=== PATIENT | female | born 1980 | race Caucasian/White ===

== ENCOUNTER 2016-10-28 19:45 | Emergency (ER) | payer MEDICAID ==
[2016-10-28 19:59] VITALS: TEMP 97.7
[2016-10-28 20:26] LABS: % IMMATURE GRANULYOCYTES 0.1 % (0.0-1.1); ABSOLUTE IMMATURE GRANULOCYTES 0.01 10^3/uL (0.00-0.10); ADD DIFF? NO; ADD MORPH? NO; ADD SCAN? NO; ATYPICAL LYMPHOCYTE FLAG 30 (0-99); FRAGMENT RBC FLAG 0 (0-99); HEMATOCRIT 42.8 % (38.0-47.0); HEMOGLOBIN 14.5 g/dL (12.6-16.3); LEFT SHIFT FLG 0 (0-99); LIPEMIA HEMOLYSIS FLAG 90 (0-99); MEAN CELL HEMOGLOBIN 28.8 pg (27.9-34.1); MEAN CELL HEMOGLOBIN CONCENTR. 33.9 g/dL (32.4-36.7); MEAN CELL VOLUME 84.9 fL (81.5-99.8); MEAN PLATELET VOLUME 12.1 fL (8.7-11.7); PLATELET CLUMPS FLAG 0 (0-99); PLATELET COUNT 257 10^3/uL (150-400); RED BLOOD CELL COUNT 5.04 10^6/uL (4.18-5.33); RED CELL DISTRIBUTION WIDTH 13.8 % (11.5-15.2)
--- NOTE | 2016-10-28 20:39 | EDPHY ---
H & P Stated Complaint: abd pain, fluid overload, cardiac history Time Seen by Provider: 10/28/16 20:29 HPI/ROS: CHIEF COMPLAINT: Abdominal fullness HISTORY OF PRESENT ILLNESS: The patient is a 36-year-old female with a history of atrial fibrillation, left ventricular non compaction syndrome on chronic Lasix as well as Xarelto, digoxin and amiodarone who comes to the emergency department complaining of right-sided abdominal fullness. 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 Samantha Márquez. She has diuresed but still feels that she has abdominal fullness. She also has a small right inguinal hernia that she stays worsens when she stands up but is not painful. She has had multiple abdominal surgeries mostly from complications after Caesarean section. She was seen in [facility] Emergency Department last night and had a negative CT scan of her abdomen and according to the patient normal lab work other than and BNP of 2200 . She was treated with IV Lasix for this. Today she has taken extra Lasix but feels that her fullness and mild pain of continued. She has diarrhea chronically and this is not changed. She has been afebrile. No vomiting. REVIEW OF SYSTEMS: Constitutional: denies: chills, fever, recent illness, recent injury EENTM: denies: blurred vision, double vision, nose congestion Respiratory: denies: cough, shortness of breath Cardiac: denies: chest pain, irregular heart rate, lightheadedness, palpitations Gastrointestinal/Abdominal: See HPI Genitourinary: denies: dysuria, frequency, hematuria, pain Musculoskeletal: denies: joint pain, muscle pain Skin: denies: lesions, rash, jaundice, bruising Neurological: denies: headache, numbness, paresthesia, tingling, dizziness, weakness Hematologic/Lymphatic: denies: blood clots, easy bleeding, easy bruising Immunologic/allergic: denies: HIV/AIDS, transplant EXAM: GENERAL: Well-appearing, well-nourished and in no acute distress. HEAD: Atraumatic, normocephalic. EYES: Pupils equal round and reactive to light, extraocular movements intact, sclera anicteric, conjunctiva are normal. ENT: TMs normal, nares patent, oropharynx clear without exudates. Moist mucous membranes. NECK: Normal range of motion, supple without lymphadenopathy or JVD. LUNGS: Breath sounds clear to auscultation bilaterally and equal. No wheezes rales or rhonchi. HEART: Regular rate and rhythm without murmurs, rubs or gallops. ABDOMEN: Thin, flat abdomen, Soft, nontender, normoactive bowel sounds. No guarding, no rebound. No masses appreciated. BACK: No CVA tenderness, no spinal tenderness, step-offs or deformities EXTREMITIES: Normal range of motion, no pitting or edema. No clubbing or cyanosis. NEUROLOGICAL: Cranial nerves II through XII grossly intact. Normal speech, normal gait. 5/5 strength, normal movement in all extremities, normal sensation PSYCH: Normal mood, normal affect. SKIN: Warm, dry, normal turgor, no visible rashes or lesions. Source: Patient Exam Limitations: No limitations - Personal History LMP (Females 10-55): 8-14 Days Ago Tetanus Vaccine Date: 2014 - Medical/Surgical History Hx Asthma: No Hx Chronic Respiratory Disease: No Hx Diabetes: No Hx Cardiac Disease: Yes Hx Renal Disease: No Hx Cirrhosis: No Hx Alcoholism: No Hx HIV/AIDS: No Hx Splenectomy or Spleen Trauma: No Other PMH: medical- AFIB, cardiomyopathy, L ventricular non compression syndrome , depression. surgical- heart cath (no stents), abd, - Family History Significant Family History: No pertinent family hx - Social History Smoking Status: Former smoker Alcohol Use: Sober Drug Use: None Constitutional: Initial Vital Signs Temperature (C) 36.5 C 10/28/16 19:56 Heart Rate 73 10/28/16 19:56 Respiratory Rate 18 10/28/16 19:56 Blood Pressure 121/78 H 10/28/16 19:56 O2 Sat (%) 100 10/28/16 19:56 O2 Delivery Mode Room Air O2 (L/minute) 2 Allergies/Adverse Reactions: No Known Allergies Allergy (Verified 10/28/16 19:56) Home Medications: Medication Instructions Recorded Amiodarone HCl [Pacerone] 300 mg PO PRN PRN 08/13/15 Digoxin [Lanoxin 0.125 mg] 0.125 mg PO DAILY 08/13/15 Furosemide [Lasix 20 MG (*)] 20 mg PO DAILY 08/13/15 Potassium Chloride 20 meq PO DAILY 08/13/15 Sertraline HCl [Zoloft 100mg (*)] 100 mg PO HS 08/13/15 Gabapentin [Neurontin] 900 mg PO TID 30 Days 08/14/15 Rivaroxaban [Xarelto] 20 mg PO DAILY 08/14/15 Oxycodone HCl 5 mg PO Q4 PRN #10 capsule 10/28/16 Medical Decision Making - Diagnostics EKG Interpretation: An EKG obtained and was read and documented in trace view. Please see trace view for full reading and report. Sinus rhythm, unchanged from previous LVH with repolarization abnormality and inverted T-waves ED Course/Re-evaluation: We obtained records from [facility]. Her troponin last night was negative. Her BNP was 1211. CT results showed hepatic congestion without any surgical process 9:50 p.m. the patient's BNP is half of what it was yesterday. Her troponin is negative. 10:35 p.m. The patient states that she is happy the workup is negative and feels ready to go home and follow up with her regular doctor and with GI. I spoke with Dr. Márquez who agrees with this plan. Differential Diagnosis: Partial list of the Differential diagnosis considered include but were not limited to; bloating, obstruction, hernia, CHF, anxiety and although unlikely based on the history and physical exam, I also considered volvulus, ischemia. I discussed these differential diagnoses and the plan with the patient as well as the usual and expected course. The patient understands that the diagnosis is provisional and that in medicine we are not always correct and that further workup is often warranted. Usual and customary warnings were given. All of the patient's questions were answered. The patient was instructed to return to the emergency department should the symptoms at all worsen or return, otherwise to followup with the physician as we discussed. - Data Points Laboratory Results: Laboratory Results 10/28/16 20:42 10/28/16 20:10 Medications Given: Discontinued Medications Hydromorphone HCl (Dilaudid) 1 mg IVP EDNOW ONE Stop: 10/28/16 21:42 Last Admin: 10/28/16 21:43 Dose: 1 mg Oxycodone/Acetaminophen (Percocet 5/325mg Prepack#4) 1 btl TAKEHOME EDNOW ONE Stop: 10/28/16 23:29 Last Admin: 10/28/16 23:36 Dose: 1 btl Departure - Departure Disposition: Home, Routine, Self-Care Clinical Impression: Abdominal pain Qualifiers: Abdominal location: generalized Qualified Code(s): R10.84 - Generalized abdominal pain Condition: Fair Instructions: Oxycodone/Acetaminophen (By mouth), Abdominal Pain (ED) Referrals: LIONEL WALLACE [Other] - As per Instructions Reji Muhammad MD [Medical Doctor] - As per Instructions Prescriptions: Oxycodone HCl 5 mg PO Q4 PRN #10 capsule PRN Reason: Pain, Severe
--- NOTE | 2016-10-28 20:51 | CPEKG ---
Heart Rate: 58 RR Interval: 1034 P-R Interval: 140 QRSD Interval: 84 QT Interval: 464 QTC Interval: 456 P [place]: 34 QRS [place]: 86 T Wave [place]: 262 EKG Severity - ABNORMAL ECG - EKG Impression: SINUS RHYTHM EKG Impression: PROBABLE LEFT ATRIAL ABNORMALITY EKG Impression: LVH WITH SECONDARY REPOLARIZATION ABNORMALITY EKG Impression: similar to previous Electronically Signed By: Nas Mckinley 28-Oct-2016 20:53:58
[2016-10-28 21:13] LABS: ALANINE AMINOTRANSFERASE 38 IU/L (9-52); ALBUMIN 5.2 g/dL (3.5-5.0); ALKALINE PHOSPHATASE 45 IU/L (38-126); ANION GAP 14 mEq/L (8-16); ASPARTATE AMINOTRANSFERASE 31 IU/L (14-46); BILIRUBIN,TOTAL 0.7 mg/dL (0.1-1.4); BILIRUBIN-CONJUGATED 0.4 mg/dL (0.0-0.5); BILIRUBIN-UNCONJUGATED 0.3 mg/dL (0.0-1.1); CALCIUM 9.5 mg/dL (8.5-10.4); CARBON DIOXIDE 20 mEq/l (22-31); CHLORIDE 103 mEq/L (97-110); CREATININE 0.8 mg/dL (0.6-1.0); GLOMERULAR FILTRATION RATE > 60; GLUCOSE 91 mg/dL (70-100); POTASSIUM 4.4 mEq/L (3.5-5.2); SODIUM 137 mEq/L (134-144)
[2016-10-28 21:21] LABS: % IMMATURE GRANULYOCYTES 0.3 % (0.0-1.1); ABSOLUTE IMMATURE GRANULOCYTES 0.02 10^3/uL (0.00-0.10); ADD DIFF? NO; ADD MORPH? NO; ADD SCAN? NO; ATYPICAL LYMPHOCYTE FLAG 10 (0-99); FRAGMENT RBC FLAG 0 (0-99); HEMATOCRIT 38.2 % (38.0-47.0); HEMOGLOBIN 12.7 g/dL (12.6-16.3); LEFT SHIFT FLG 0 (0-99); LIPEMIA HEMOLYSIS FLAG 80 (0-99); MEAN CELL HEMOGLOBIN CONCENTR. 33.2 g/dL (32.4-36.7); MEAN CELL VOLUME 84.1 fL (81.5-99.8); PLATELET CLUMPS FLAG 0 (0-99); PLATELET COUNT 242 10^3/uL (150-400); RED BLOOD CELL COUNT 4.54 10^6/uL (4.18-5.33); RED CELL DISTRIBUTION WIDTH 13.8 % (11.5-15.2)
[2016-10-28] MEDS ORDERED: HYDROmorphONE/DILAUDID 1 MG/ML SYR ONE (21:37)
[2016-10-28] MEDS ORDERED: HYDROmorphONE/DILAUDID 1 MG/ML SYR IVP ONE (21:41)
[2016-10-28 21:46] LABS: TROPONIN I < 0.012 ng/mL (0-0.034)
[2016-10-28 22:38] VITALS: RESP 16
[2016-10-28] MEDS ORDERED: OXYCODONE/APAP 5/325MG PREPACK#4 BTL TAKEHOME ONE (23:28)
[2016-10-28 23:38] VITALS: BP 115/71; PULSE 65; O2SAT 95
== END 2016-10-28 23:37 | disposition home or self-care (01) ==
DX: R10.84 Generalized abdominal pain (principal); Z79.01 Long term (current) use of anticoagulants; Z87.891 Personal history of nicotine dependence; Z95.5 Presence of coronary angioplasty implant and graft
CPT/HCPCS: 96374; J1170